=== PATIENT | female | born 1970 | race Caucasian/White ===

== ENCOUNTER 2019-03-22 22:21 | Inpatient (IN) | payer BC, MEDICAID ==
[~2019-03-22] VITALS: Ht 167.6 cm; Wt 113.9 kg
[~2019-03-22 22:21] MED LIST: BIOT1CAP3 PO; BUSP10TA PO; DULO30CA2 PO; GABA600T7 PO; HYDR50TA13 PO; META800T PO; MONT10TA9 PO; OMEP-110 PO
--- NOTE | 2019-03-22 22:23 | NUR ---
PT BIB [facility] FROM AFTER FOUND PT SLUMPED OVER, UNRESPONSIVE. PMH OF SA WITH OVER DOSE. CURRRENT ACCESS TO MUSCLE RELAXERS AND NARCOTICS, NO BOTTLES FOUND, UNSURE WHAT MEDS MIGHT HAVE BEEN TAKEN. IV IN PLACE ON ARRIVAL. BLOOD NOTED TO MOUTH APPEARS PT HAS BIT TONGUE. KARATE INSTRUCTOR IN PLACE. CONNECTED TO ALL MONITORING, TACHY HR, SNORING BREATHING NOTED. PT MOUTH, HANDS, CLENCHED DOWN, RIGID.
[2019-03-22] MEDS ORDERED: SODIUM CHLORIDE 0.9% 1,000ML IVBOLUS ONE (22:30)
--- NOTE | 2019-03-22 22:30 | NUR ---
INTUBATED 8.0, 25 @LIP. 20 ETOMUDATE, [address] CALLED STS ABLE TO TAKE PT NOW.
--- NOTE | 2019-03-22 22:38 | NUR ---
LORNE GASTELUM. NICOLAS COMPLETED
--- NOTE | 2019-03-22 23:07 | NUR ---
[place] PLACED. LAB AT BEDSIDE
--- NOTE | 2019-03-22 23:09 | NUR ---
REPORT GIVEN TO ONEYDA HALL
[2019-03-22] MEDS ORDERED: FENTANYL PF 100 MCG/2ML ONE (23:14)
[2019-03-22] MEDS ORDERED: MIDAZOLAM HCL 50 MG in SODIUM CHLORIDE 0.9% 40 ML IV PRN (23:14)
--- NOTE | 2019-03-22 23:17 | NUR ---
REPORT RECEIVED FROM CHRIS OCHOA RN. ASSUMED CARE OF PT
[2019-03-22 23:29] LABS: AMPHETAMINE SCREEN, URINE Negative (Negative); BARBITURATE SCREEN, URINE Negative (Negative); BENZODIAZEPINE SCREEN, URINE Negative (Negative); CANNABINOID SCREEN, URINE Negative (Negative); COCAINE SCREEN, URINE Negative (Negative); METHADONE SCREEN, URINE Negative (Negative); OPIATE SCREEN, URINE Positive (Negative)
[2019-03-22 23:31] LABS: BASOPHILS # (AUTO) 0.03 x10^3/uL (0-0.1); BASOPHILS % (AUTO) 0 % (0-1); EOSINOPHILS # (AUTO) 0.03 x10^3/uL (0-0.4); EOSINOPHILS % (AUTO) 0 % (1-7); LYMPHOCYTES # (AUTO) 1.44 x10^3/uL (1-3.4); LYMPHOCYTES % (AUTO) 11 % (22-44); MD NO; MEAN CORPUSCULAR HEMOGLOBIN 30.1 pg (27.0-34.8); MEAN CORPUSCULAR HGB CONC 33.1 g/dL (32.4-35.8); MONOCYTES # (AUTO) 0.49 x10^3/uL (0.2-0.8); MONOCYTES % (AUTO) 4 % (2-9); NEUTROPHILS # (AUTO) 10.95 x10^3/uL (1.8-6.8); NEUTROPHILS % (AUTO) 85 % (42-75); PLATELET COUNT 220 x10^3/uL (130-400); RED BLOOD COUNT 3.99 x10^6/uL (3.82-5.3); RED CELL DISTRIBUTION WIDTH 14.7 % (9.6-15.2)
[2019-03-22 23:44] LABS: ALBUMIN 3.4 g/dL (3.4-5.0); ANION GAP 8 mmol/L (5-15); CALCIUM 7.2 mg/dL (8.5-10.1); CHLORIDE 106 mmol/L (98-107); SALICYLATE LEVEL 4.1 mg/dL (2.8-20.0)
[2019-03-22 23:49] LABS: ALANINE AMINOTRANSFERASE 14 U/L (12-78); ALKALINE PHOSPHATASE 84 U/L (45-117); BILIRUBIN,TOTAL 0.2 mg/dL (0.2-1.0); CREATININE 1.11 mg/dL (0.55-1.02); TOTAL PROTEIN 6.5 g/dL (6.4-8.2); TROPONIN I < 0.015 ng/mL (0.000-0.045)
[2019-03-22] MEDS ORDERED: OMNIPAQUE 350 MG/ML, 100ML BOTTLE ONE (23:58)
[2019-03-23 00:08] LABS: INTERNATIONAL NORMALIZED RATIO 1.01 (0.93-1.1); PROTHROMBIN TIME 10.7 Seconds (9.6-11.5)
--- NOTE | 2019-03-23 00:17 | NUR ---
LATE ENTRY FOR 234: BACK FROM CT
--- NOTE | 2019-03-23 00:17 | NUR ---
VITALY (BRANDT) [phone]. STATES PT DOES NOT HAVE AN ADVANCED DIRECTIVE AND IS A FULL CODE
--- NOTE | 2019-03-23 00:23 | NUR ---
PT TOLERATING VENTILATOR WELL, APPEARS TO BE SEDATED ADEQUATELY. ALSO TREATED FOR PAIN WITH FENTANYL. NO GRIMACING, MOVEMENT OR COUGHING NOTED. HEAD OF BED ELEVATED, PT BREATHING WITH EASE. REMAINS SINUS TACH ON THE MONTIOR AT A RATE OF 114, NO ST CHANGES OR ECTOPY NOTED. ETCO2 47, O2 SAT 99%. 50ML OF DARK URINE OUTPUT IN [place] AT THIS TIME. WILL CONTINUE TO MONITOR. WILL BE ICU ADMIT, AWAITING ADMIT ORDERS FOR TRANSFER.
--- NOTE | 2019-03-23 00:26 | NUR ---
AND DAUGHTER WERE HERE AND REPORTS THEY WERE ABLE TO FIND THE OXYCODONE BOTTLE AND IT HAD THE CORRECT AMOUNT OF MEDICATION IN THAT BOTTLE. THEY WERE UNABLE TO LOCATE THE MUSCLE RELAXER PILL BOTTLE. HE WAS ALSO UNSURE OF THE NAME OF THE MEDICATION. HE REPORTS THIS IS A COMMON OCCURANCE WITH HER. SHE TENDS TO TAKE TOO MUCH MEDICATION AT TIMES.
--- NOTE | 2019-03-23 00:29 | NUR ---
PT BELONGINGS CONSIST OF PILL BOTTLES (10), A PAIR OF GLASSES (GREEN AND BROWN), LABELED WITH PT LABEL. PT ALSO WEARING A WEDD[place] RING AND BAND ON THE LEFT HAND. DECLINED TO TAKE ANY BELONGINGS HOME. ALL PLACED IN 1 PATIENT BELONGING BAG AND LABELED WITH PT LABEL.
[2019-03-23] MEDS ORDERED: LEVO100T5 PO (00:34)
[2019-03-23] MEDS ORDERED: DULO30CA2 PO (00:34)
[2019-03-23] MEDS ORDERED: PANT20TA3 PO (00:36)
[2019-03-23] MEDS ORDERED: QUET400T PO (00:37)
[2019-03-23 00:46] LABS: FREE T4 (FREE THYROXINE) 0.9 ng/dL (0.76-1.46)
--- NOTE | 2019-03-23 00:57 | NUR ---
REPORT TO ISABEL LEÓN
[2019-03-23] MEDS ORDERED: FENTANYL PF 100 MCG/2ML ONE (00:58)
[2019-03-23] MEDS ORDERED: FENTANYL PF 100 MCG/2ML IVPush ONE (01:00)
[2019-03-23] MEDS ORDERED: SODIUM CHLORIDE 0.9% 1,000 ML IV SCH (01:16)
[2019-03-23] MEDS ORDERED: PROPOFOL 100 ML IV ONE (01:24)
[2019-03-23] MEDS ORDERED: DOCUSATE 100 MG CAPSULE PO PRN (01:30)
[2019-03-23] MEDS ORDERED: POLYETHYLENE GLYCOL 17 GM PACKET PO PRN (01:30)
[2019-03-23] MEDS ORDERED: hydrALAzine 20 MG/ML, 1ML IVPush PRN (01:30)
[2019-03-23] MEDS ORDERED: PHARMACY MAY ADJ FOR RENAL FX MC SCH (01:30)
[2019-03-23] MEDS ORDERED: HEPARIN 5,000 UNITS/ML, 1ML SQ SCH (01:30)
[2019-03-23] MEDS ORDERED: FENTANYL PF 100 MCG/2ML IVPush PRN (01:30)
[2019-03-23] MEDS ORDERED: BISACODYL 10 MG SUPP PR PRN (01:30)
[2019-03-23] MEDS ORDERED: LIDOCAINE-MPF 1%, 2ML ENDO PRN (01:30)
[2019-03-23] MEDS ORDERED: LACTULOSE 20 GM/30 ML UDC NG PRN (01:30)
[2019-03-23] MEDS: PROPOFOL 100 ML IV PRN ×2 (01:49→04:30)
[2019-03-23] MEDS: SODIUM CHLORIDE 0.9% 1,000 ML IV SCH ×2 (01:50→14:50)
[2019-03-23] MEDS: HEPARIN 5,000 UNITS/ML, 1ML SQ SCH ×3 (01:56→17:07)
[2019-03-23] MEDS ORDERED: FENTANYL PF 1,000 MCG in SODIUM CHLORIDE 0.9% 80 ML IV PRN (03:30)
[2019-03-23 04:01] LABS: MICROSCOPIC NOT IND
[2019-03-23 04:09] LABS: CULTURE INDICATED? NO
[2019-03-23] MEDS: LEVOTHYROXINE 100 MCG TABLET PO SCH (05:39)
[2019-03-23 05:47] LABS: BASOPHILS # (AUTO) 0.08 x10^3/uL (0-0.1); BASOPHILS % (AUTO) 1 % (0-1); EOSINOPHILS # (AUTO) 0.01 x10^3/uL (0-0.4); EOSINOPHILS % (AUTO) 0 % (1-7); LYMPHOCYTES # (AUTO) 1.26 x10^3/uL (1-3.4); LYMPHOCYTES % (AUTO) 11 % (22-44); MD NO; MEAN CORPUSCULAR HEMOGLOBIN 29.8 pg (27.0-34.8); MEAN CORPUSCULAR HGB CONC 32.8 g/dL (32.4-35.8); MEAN CORPUSCULAR VOLUME 90.9 fL (80-100); MEAN PLATELET VOLUME 7.8 fL (7.4-10.4); MONOCYTES % (AUTO) 6 % (2-9); NEUTROPHILS # (AUTO) 9.02 x10^3/uL (1.8-6.8); NEUTROPHILS % (AUTO) 82 % (42-75); PLATELET COUNT 218 x10^3/uL (130-400); RED BLOOD COUNT 4.14 x10^6/uL (3.82-5.3); RED CELL DISTRIBUTION WIDTH 15.1 % (9.6-15.2)
[2019-03-23 05:55] LABS: ALANINE AMINOTRANSFERASE 14 U/L (12-78); ALBUMIN 3.6 g/dL (3.4-5.0); ANION GAP 7 mmol/L (5-15); CALCIUM 7.5 mg/dL (8.5-10.1); CHLORIDE 107 mmol/L (98-107); CREATININE 1.25 mg/dL (0.55-1.02)
[2019-03-23 05:57] LABS: ALKALINE PHOSPHATASE 85 U/L (45-117); BILIRUBIN,TOTAL 0.2 mg/dL (0.2-1.0); TOTAL PROTEIN 6.9 g/dL (6.4-8.2)
[2019-03-23] MEDS ORDERED: MIDAZOLAM 1 MG/ML, 5ML ONE (08:00)
[2019-03-23] MEDS ORDERED: SUCCINYLCHOLINE 20 MG/ML, 10ML ONE (08:00)
[2019-03-23] MEDS ORDERED: PROPOFOL 10 MG/ML, 20ML ONE (08:00)
[2019-03-23] MEDS ORDERED: ETOMIDATE 20 MG/10 ML ONE (08:00)
[2019-03-23] MEDS: FAMOTIDINE 20 MG/2 ML IVPush SCH ×2 (09:51→20:39)
[2019-03-23] MEDS: MONTELUKAST 10 MG TABLET PO SCH (09:51)
[2019-03-23] MEDS: ACETAMINOPHEN 325 MG TABLET PO PRN ×2 (16:27→20:58)
[2019-03-23] MEDS: ALBUTEROL SULFATE 2.5 MG/3 ML NPPB SCH (20:00)
[2019-03-23] MEDS: QUETIAPINE 200 MG TABLET PO SCH (20:39)
[2019-03-24] MEDS: HEPARIN 5,000 UNITS/ML, 1ML SQ SCH ×3 (01:15→17:29)
[2019-03-24] MEDS: ACETAMINOPHEN 325 MG TABLET PO PRN ×3 (01:21→12:16)
[2019-03-24] MEDS: SODIUM CHLORIDE 0.9% 1,000 ML IV SCH (02:23)
[2019-03-24 06:02] LABS: ALANINE AMINOTRANSFERASE 21 U/L (12-78); ALBUMIN 2.9 g/dL (3.4-5.0); ANION GAP 6 mmol/L (5-15); CALCIUM 7.7 mg/dL (8.5-10.1); CHLORIDE 105 mmol/L (98-107)
[2019-03-24 06:06] LABS: ALKALINE PHOSPHATASE 76 U/L (45-117); BILIRUBIN,TOTAL 0.4 mg/dL (0.2-1.0); CHOL/HDL RATIO 3.9; CHOLESTEROL, TOTAL 197 mg/dL (140-239); CREATININE 0.74 mg/dL (0.55-1.02); HDL CHOL % 26 % (28-40); HDL CHOLESTEROL (DIRECT) 51 mg/dL (40-60); LDL CHOLESTEROL,CALCULATED 99 mg/dL (54-169); LDL/HDL RATIO 1.9 (0.5-3.0); TOTAL PROTEIN 5.7 g/dL (6.4-8.2); TRIGLYCERIDES 235 mg/dL (50-200); VLDL CHOLESTEROL 47 mg/dL (0-25)
[2019-03-24] MEDS: ALBUTEROL SULFATE 2.5 MG/3 ML NPPB SCH ×4 (06:30→19:29)
[2019-03-24] MEDS: LEVOTHYROXINE 100 MCG TABLET PO SCH (06:41)
[2019-03-24 06:53] LABS: MEAN CORPUSCULAR HEMOGLOBIN 30.4 pg (27.0-34.8); MEAN CORPUSCULAR HGB CONC 33.7 g/dL (32.4-35.8); MEAN CORPUSCULAR VOLUME 90.2 fL (80-100); MEAN PLATELET VOLUME 8.4 fL (7.4-10.4); PLATELET COUNT 100 x10^3/uL (130-400); RED BLOOD COUNT 3.61 x10^6/uL (3.82-5.3); RED CELL DISTRIBUTION WIDTH 14.8 % (9.6-15.2)
[2019-03-24 06:54] LABS: BASOPHILS # (AUTO) 0.07 x10^3/uL (0-0.1); BASOPHILS % (AUTO) 1 % (0-1); EOSINOPHILS % (AUTO) 1 % (1-7); LYMPHOCYTES # (AUTO) 2.07 x10^3/uL (1-3.4); LYMPHOCYTES % (AUTO) 26 % (22-44); MD SCAN; MONOCYTES % (AUTO) 6 % (2-9); NEUTROPHILS # (AUTO) 5.13 x10^3/uL (1.8-6.8); NEUTROPHILS % (AUTO) 65 % (42-75)
[2019-03-24] MEDS ORDERED: POTASSIUM CHLORIDE 20 MEQ TAB.ER.PRT PO ONE (07:00)
[2019-03-24 08:15] VITALS: BP 126/69
[2019-03-24] MEDS: MONTELUKAST 10 MG TABLET PO SCH (08:23)
[2019-03-24 12:41] VITALS: BP 133/85
[2019-03-24] MEDS: IBUPROFEN 200 MG TABLET PO PRN (13:39)
[2019-03-24] MEDS: hydrOXyzine 50MG TABLET PO PRN ×2 (13:39→20:42)
[2019-03-24] MEDS ORDERED: BENZOCAINE 20% SPRAY 0.5ML TP ONE (15:00)
[2019-03-24 18:59] VITALS: BP 121/84
[2019-03-24] MEDS ORDERED: NICOTINE 21 MG/24 HR PATCH.TD24 TD SCH (20:00)
[2019-03-24] MEDS: QUETIAPINE 200 MG TABLET PO SCH (20:42)
[2019-03-24] MEDS ORDERED: BENZOCAINE 20% SPRAY 0.5ML TP PRN (21:00)
[2019-03-25] MEDS: HEPARIN 5,000 UNITS/ML, 1ML SQ SCH ×2 (01:30→09:30)
[2019-03-25 02:12] VITALS: BP 120/75
[2019-03-25] MEDS: BENZOCAINE AEROSOL SPRAY 20%, 60ML TP PRN ×2 (02:37→09:32)
[2019-03-25] MEDS: IBUPROFEN 200 MG TABLET PO PRN (02:49)
[2019-03-25] MEDS: hydrOXyzine 50MG TABLET PO PRN (02:49)
[2019-03-25 05:36] LABS: BASOPHILS # (AUTO) 0.01 x10^3/uL (0-0.1); BASOPHILS % (AUTO) 0 % (0-1); EOSINOPHILS # (AUTO) 0.06 x10^3/uL (0-0.4); EOSINOPHILS % (AUTO) 1 % (1-7); LYMPHOCYTES # (AUTO) 1.95 x10^3/uL (1-3.4); LYMPHOCYTES % (AUTO) 34 % (22-44); MD NO; MEAN CORPUSCULAR HEMOGLOBIN 29.8 pg (27.0-34.8); MEAN CORPUSCULAR HGB CONC 33.1 g/dL (32.4-35.8); MEAN CORPUSCULAR VOLUME 90.3 fL (80-100); MEAN PLATELET VOLUME 8.3 fL (7.4-10.4); MONOCYTES % (AUTO) 9 % (2-9); NEUTROPHILS # (AUTO) 3.29 x10^3/uL (1.8-6.8); NEUTROPHILS % (AUTO) 57 % (42-75); PLATELET COUNT 176 x10^3/uL (130-400); RED BLOOD COUNT 3.74 x10^6/uL (3.82-5.3); RED CELL DISTRIBUTION WIDTH 14.8 % (9.6-15.2)
[2019-03-25] MEDS: LEVOTHYROXINE 100 MCG TABLET PO SCH (06:29)
[2019-03-25] MEDS: ALBUTEROL SULFATE 2.5 MG/3 ML NPPB SCH ×2 (08:02→11:17)
[2019-03-25 09:08] VITALS: BP 121/78
[2019-03-25] MEDS: MONTELUKAST 10 MG TABLET PO SCH (09:31)
[2019-03-25] MEDS: ACETAMINOPHEN 325 MG TABLET PO PRN (09:37)
== END 2019-03-25 13:24 | disposition home or self-care (01) | DRG 917 ==
LOC: ED 03-23 00:54 → EDIP 03-23 01:00 → CCU 03-23 01:07 → 3N 03-24 12:47 → DCLOUNGE 03-25 13:12
PROVIDERS: ADMIT Internal Medicine; ATTEND Internal Medicine
PROC: 0BH17EZ Insertion of Endotracheal Airway into Trachea, Via Natural or Artificial Opening (ICD-10-PCS; principal; 2019-03-23)
PROC: 5A1935Z Respiratory Ventilation, Less than 24 Consecutive Hours (ICD-10-PCS; 2019-03-23)
PROC: 0T9B70Z Drainage of Bladder with Drainage Device, Via Natural or Artificial Opening (ICD-10-PCS; 2019-03-23)
DX: T50.911A Poisoning by multiple unspecified drugs, medicaments and biological substances, accidental (unintentional), initial encounter (principal); J96.01 Acute respiratory failure with hypoxia; G92 Toxic encephalopathy; N17.0 Acute kidney failure with tubular necrosis; E87.2 Acidosis; Z99.11 Dependence on respirator [ventilator] status; Z68.41 Body mass index [BMI] 40.0-44.9, adult; E03.9 Hypothyroidism, unspecified; G89.4 Chronic pain syndrome; M54.9 Dorsalgia, unspecified; F32.9 Major depressive disorder, single episode, unspecified; B95.61 Methicillin susceptible Staphylococcus aureus infection as the cause of diseases classified elsewhere; E66.9 Obesity, unspecified; M19.90 Unspecified osteoarthritis, unspecified site; Z91.5 Personal history of self-harm; Y92.89 Other specified places as the place of occurrence of the external cause; Z90.49 Acquired absence of other specified parts of digestive tract; Z79.899 Other long term (current) drug therapy
CPT/HCPCS: 36415; 36600; 74018; 84145; 99291; J3490; J7613; 70450; 70496; 70498; 71045; 80053; 80061; 80307; 81003; 82533; 82803; 83036; 83605; 83735; 84439; 84443; 84478; 84481; 84484; 85025; 85610; 87040; 87070; 87077; 87081; 87147; 87186; 87205; 93005; 94002; 94003; 94150; 94640; G0378; J1644; J2250; J2704; J3010; Q9967; J0330; J7030

== ENCOUNTER 2019-08-02 03:26 | Inpatient (IN) | payer MEDICAID ==
[~2019-08-02] VITALS: Ht 170.2 cm; Wt 120.5 kg
[~2019-08-02 03:26] MED LIST changes: -HYDR50TA13 PO; +HYDR50TA99 PO; +LEVO100T5 PO; +MONT10TA11 PO; -MONT10TA9 PO; +PANT20TA3 PO; +QUET400T PO
--- NOTE | 2019-08-02 03:30 | NUR ---
THIS PT WAS BIB [facility] AFTER HER DAUGHTER CALLED 911. DAUGHTER CAME HOME AROUND 0200 THIS AM AND FOUND HER MOTHER TO BE TREMULOUS WITH ALOC. PT HAS A HX OF ASTHMA AND DAUGHTER GAVE A BREATHING TREATMENT BEFORE EMS ARRIVED. PER EMS PT ADMITTED TO TAKING 10 METAXALONE. ERP TO BEDSIDE. UPON ARRIVAL PT HAS AUDIBLE WHEEZES, SATING 91% ON RA. PT IS A&OX3: KNOWS WHO SHES, WHERE SHE IS AND WHY SHE'S HERE, STATED 2018 WHEN ASKED WHAT YEAR IT IS. PT STATED TO THIS RN SHE TOOK 5 METAXALONE, STATES HER PCP TOLD HER TO TAKE THE MED. DENIED SI, DENIED "WANTING TO FALL ASLEEP AND NOT WAKE UP."
[2019-08-02 03:58] LABS: BASOPHILS # (AUTO) 0.06 x10^3/uL (0-0.1); BASOPHILS % (AUTO) 1 % (0-1); EOSINOPHILS # (AUTO) 0.06 x10^3/uL (0-0.4); EOSINOPHILS % (AUTO) 1 % (1-7); LYMPHOCYTES # (AUTO) 2.21 x10^3/uL (1-3.4); LYMPHOCYTES % (AUTO) 20 % (22-44); MD NO; MEAN CORPUSCULAR HEMOGLOBIN 29.4 pg (27.0-34.8); MEAN CORPUSCULAR HGB CONC 33.2 g/dL (32.4-35.8); MEAN CORPUSCULAR VOLUME 88.7 fL (80-100); MEAN PLATELET VOLUME 7.5 fL (7.4-10.4); MONOCYTES # (AUTO) 0.61 x10^3/uL (0.2-0.8); MONOCYTES % (AUTO) 6 % (2-9); NEUTROPHILS # (AUTO) 8.19 x10^3/uL (1.8-6.8); NEUTROPHILS % (AUTO) 74 % (42-75); PLATELET COUNT 284 x10^3/uL (130-400); RED BLOOD COUNT 4.38 x10^6/uL (3.82-5.3); RED CELL DISTRIBUTION WIDTH 13.6 % (9.6-15.2)
[2019-08-02] MEDS ORDERED: SODIUM CHLORIDE 0.9% 1,000ML IVBOLUS ONE (04:00)
[2019-08-02 04:09] LABS: ALANINE AMINOTRANSFERASE 16 U/L (12-78); ALBUMIN 3.9 g/dL (3.4-5.0); ANION GAP 8 mmol/L (5-15); CALCIUM 8.1 mg/dL (8.5-10.1); CHLORIDE 106 mmol/L (98-107); SALICYLATE LEVEL 3.7 mg/dL (2.8-20.0)
[2019-08-02] MEDS ORDERED: LORazepam 2 MG/ML, 1ML ONE (04:09)
[2019-08-02 04:12] LABS: ALKALINE PHOSPHATASE 88 U/L (45-117); BILIRUBIN,TOTAL 0.3 mg/dL (0.2-1.0); CREATINE KINASE, TOTAL 114 U/L (26-192); TOTAL PROTEIN 7.5 g/dL (6.4-8.2)
--- NOTE | 2019-08-02 04:14 | NUR ---
Kelvin rn: Unable to obtain proper bp as pt arms are moving too much and unable to control it.
--- NOTE | 2019-08-02 04:17 | NUR ---
Bedside report to [facility].
--- NOTE | 2019-08-02 04:24 | NUR ---
pt daughter "Andrew" called looking for update p#
[2019-08-02] MEDS ORDERED: LORazepam 2 MG/ML, 1ML IVPush ONE (04:30)
--- NOTE | 2019-08-02 04:45 | NUR ---
PT TO IMAGING.
[2019-08-02] MEDS ORDERED: ONDANSETRON 2MG/ML, 2ML IVPush PRN (05:00)
[2019-08-02] MEDS ORDERED: hydrALAzine 20 MG/ML, 1ML IVPush PRN (05:00)
--- NOTE | 2019-08-02 05:07 | NUR ---
PT BACK FROM IMAGING, EYE CLOSED, RESPIRATIONS EVEN AND UNLABORED, SNORING HEARD.
[2019-08-02 05:59] VITALS: BP 129/73
[2019-08-02] MEDS: SODIUM CHLORIDE 0.9% 1,000 ML IV SCH ×3 (06:29→20:09)
[2019-08-02] MEDS: HEPARIN 5,000 UNITS/ML, 1ML SQ SCH ×3 (06:31→20:04)
[2019-08-02 06:42] VITALS: BP 125/85
[2019-08-02 08:19] LABS: MICROSCOPIC NOT IND
[2019-08-02 08:31] LABS: AMPHETAMINE SCREEN, URINE Negative (Negative); BARBITURATE SCREEN, URINE Negative (Negative); BENZODIAZEPINE SCREEN, URINE Negative (Negative); CANNABINOID SCREEN, URINE Negative (Negative); COCAINE SCREEN, URINE Negative (Negative); METHADONE SCREEN, URINE Negative (Negative); OPIATE SCREEN, URINE Negative (Negative)
[2019-08-02] MEDS ORDERED: LEVOTHYROXINE 100 MCG TABLET PO SCH (09:00)
[2019-08-02] MEDS ORDERED: FAMOTIDINE 20 MG TABLET PO SCH (09:00)
[2019-08-02] MEDS: MONTELUKAST 10 MG TABLET PO SCH (09:11)
[2019-08-02] MEDS: LEVOTHYROXINE 100 MCG TABLET PO SCH (09:12)
[2019-08-02] MEDS: PANTOPRAZOLE 20MG TABLET PO SCH (09:12)
[2019-08-02] MEDS ORDERED: BUSP10TA PO (12:15)
[2019-08-02] MEDS ORDERED: QUET400T PO (12:15)
[2019-08-02] MEDS ORDERED: QUET100T PO (12:15)
[2019-08-02] MEDS ORDERED: [UNRECOGNIZED DRUG - CODE] PO (12:15)
[2019-08-02] MEDS ORDERED: OMEP20CA20 PO (12:15)
[2019-08-02] MEDS ORDERED: META400T PO (12:15)
[2019-08-02] MEDS ORDERED: OXYC-306 PO (12:16)
[2019-08-02 13:07] VITALS: BP 119/75
[2019-08-02] MEDS ORDERED: ALBUTEROL SULFATE 2.5 MG/3 ML ONE (15:37)
[2019-08-02] MEDS ORDERED: HYDROXYZINE PAMOATE 25MG CAP ONE (15:45)
[2019-08-02] MEDS ORDERED: BUSPIRONE 5 MG TABLET ONE (15:45)
[2019-08-02] MEDS: HYDROXYZINE PAMOATE 50MG CAP PO PRN (15:49)
[2019-08-02] MEDS: BUSPIRONE 10 MG TABLET PO SCH ×2 (15:49→20:05)
[2019-08-02] MEDS ORDERED: OXYcodone/APAP 7.5/325MG TABLET PO PRN (16:00)
[2019-08-02] MEDS ORDERED: ALBUTEROL SULFATE 2.5 MG/3 ML NPPB SCH (16:30)
[2019-08-02 18:35] VITALS: BP 108/78
[2019-08-02] MEDS: ACETAMINOPHEN 325 MG TABLET PO PRN (20:04)
[2019-08-02] MEDS: DULOXETINE 30 MG CAPSULE.DR PO SCH (20:05)
[2019-08-02] MEDS ORDERED: QUETIAPINE 100MG TABLET PO SCH (21:00)
[2019-08-02] MEDS: ALBUTEROL SULFATE 2.5 MG/3 ML NPPB SCH (21:45)
[2019-08-03 01:38] VITALS: BP 125/85
[2019-08-03] MEDS: SODIUM CHLORIDE 0.9% 1,000 ML IV SCH (04:14)
[2019-08-03] MEDS ORDERED: HYDROXYZINE PAMOATE 25MG CAP ONE (04:16)
[2019-08-03] MEDS: HYDROXYZINE PAMOATE 50MG CAP PO PRN (04:21)
[2019-08-03] MEDS: ACETAMINOPHEN 325 MG TABLET PO PRN (04:21)
[2019-08-03] MEDS: HEPARIN 5,000 UNITS/ML, 1ML SQ SCH (04:22)
[2019-08-03] MEDS: LEVOTHYROXINE 100 MCG TABLET PO SCH (04:22)
[2019-08-03 05:20] LABS: BASOPHILS # (AUTO) 0.03 x10^3/uL (0-0.1); BASOPHILS % (AUTO) 1 % (0-1); EOSINOPHILS # (AUTO) 0.06 x10^3/uL (0-0.4); EOSINOPHILS % (AUTO) 1 % (1-7); LYMPHOCYTES # (AUTO) 2.51 x10^3/uL (1-3.4); LYMPHOCYTES % (AUTO) 45 % (22-44); MD NO; MEAN CORPUSCULAR HEMOGLOBIN 29.6 pg (27.0-34.8); MEAN CORPUSCULAR HGB CONC 32.7 g/dL (32.4-35.8); MEAN CORPUSCULAR VOLUME 90.8 fL (80-100); MEAN PLATELET VOLUME 7.2 fL (7.4-10.4); MONOCYTES # (AUTO) 0.45 x10^3/uL (0.2-0.8); MONOCYTES % (AUTO) 8 % (2-9); NEUTROPHILS # (AUTO) 2.49 x10^3/uL (1.8-6.8); NEUTROPHILS % (AUTO) 45 % (42-75); PLATELET COUNT 196 x10^3/uL (130-400); RED BLOOD COUNT 3.69 x10^6/uL (3.82-5.3); RED CELL DISTRIBUTION WIDTH 13.4 % (9.6-15.2)
[2019-08-03 05:26] LABS: ANION GAP 10 mmol/L (5-15); CALCIUM 7.4 mg/dL (8.5-10.1); CHLORIDE 107 mmol/L (98-107); CREATININE 0.72 mg/dL (0.55-1.02)
[2019-08-03 06:21] VITALS: BP 114/79
[2019-08-03] MEDS ORDERED: BUSPIRONE 5 MG TABLET ONE (07:45)
[2019-08-03] MEDS: BUSPIRONE 10 MG TABLET PO SCH (07:53)
[2019-08-03] MEDS: MONTELUKAST 10 MG TABLET PO SCH (07:53)
[2019-08-03] MEDS: PANTOPRAZOLE 20MG TABLET PO SCH (07:53)
[2019-08-03] MEDS: DULOXETINE 30 MG CAPSULE.DR PO SCH (07:53)
[2019-08-03] MEDS: ALBUTEROL SULFATE 2.5 MG/3 ML NPPB SCH (09:20)
== END 2019-08-03 09:50 | disposition home or self-care (01) | DRG 917 ==
LOC: ED 05:13 → EDIP 05:15 → 5SO 05:51 → DCLOUNGE 08-03 09:44
PROVIDERS: ADMIT Student in an Organized Health Care Education/Training Program; ATTEND Family Medicine
DX: T42.8X1A Poisoning by antiparkinsonism drugs and other central muscle-tone depressants, accidental (unintentional), initial encounter (principal); G92 Toxic encephalopathy; N17.0 Acute kidney failure with tubular necrosis; N17.9 Acute kidney failure, unspecified; F32.9 Major depressive disorder, single episode, unspecified; E03.9 Hypothyroidism, unspecified; F17.210 Nicotine dependence, cigarettes, uncomplicated; G62.9 Polyneuropathy, unspecified; E83.51 Hypocalcemia; F41.9 Anxiety disorder, unspecified; Z79.899 Other long term (current) drug therapy
CPT/HCPCS: 36415; 99285; J7613; 70450; 80048; 80053; 80307; 81003; 82550; 83605; 83735; 84703; 85025; 93005; 94640; G0378; J1644; J2060; J7030